=== PATIENT | male | born 1985 | race Caucasian/White ===

== ENCOUNTER 2017-07-19 18:54 | Emergency (ER) | payer MEDICAID, OTHER ==
[2017-07-19] MEDS ORDERED: ONDANSETRON 4 MG INJ IV (21:12)
[2017-07-19] MEDS ORDERED: morphine 2 MG INJ IV (21:12)
[2017-07-19] MEDS ORDERED: SOD CHLORIDE 0.9% 1,000 ML IV (21:12)
[2017-07-19] MEDS: LIDOCAINE/MYLANTA 40 ML BTL PO (21:36)
[2017-07-19] MEDS: FAMOTIDINE 20 MG TAB PO (21:36)
[2017-07-19 21:56] LABS: OCCULT BLOOD STOOL NEGATIVE (NEGATIVE)
== END 2017-07-19 22:16 | disposition home or self-care (01) ==
LOC: FTE 18:54
DX: R10.13 Epigastric pain (principal); Z87.891 Personal history of nicotine dependence
CPT/HCPCS: 82270; 99284